=== PATIENT | male | born 1995 ===

== ENCOUNTER 2020-06-11 06:26 | Emergency (ER) | payer SELFPAY ==
[2020-06-11] MEDS ORDERED: ONDANSETRON 4 MG/2 ML INJ IV ONE (06:38)
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
[2020-06-11] MEDS ORDERED: D5W/0.45% NACL 1,000 ML IV SCH (07:00)
[2020-06-11 07:04] LABS: Hematocrit 45.7 % (35.5-45.6); Hemoglobin 15.8 gm/dl (11.8-15.2)
[2020-06-11 07:22] LABS: Blood Urea Nitrogen 6 mg/dL (9-20); Calcium 9.4 mg/dL (8.4-10.2); Hemolysis Index 31
[2020-06-11 07:27] LABS: BUN/Creatinine Ratio 9
[2020-06-11 07:58] LABS: Bilirubin,Urine NEG (Negative); Blood,Urine NEG (Negative); Color,Urine Straw (Yellow); Protein,Urine <15 mg/dL mg/dL (Negative); RBC,Urine < 1.0 /HPF (0.0-6.0); Urobilinogen,Urine < 2.0 mg/dL (<2.0)
[2020-06-11 08:20] LABS: Amphetamine Screen,Urine Negative; Benzodiazepines Screen,Urine Negative; Cannabinoid Screen,Urine Negative; Cocaine Screen,Urine Negative; Methadone Screen,Urine Negative; Opiate Screen,Urine Negative
[2020-06-11 08:27] VITALS: BP 140/90
== END 2020-06-11 08:31 | disposition home or self-care (01) ==
LOC: ED 06:26
DX: F10.920 Alcohol use, unspecified with intoxication, uncomplicated (principal); Z79.899 Other long term (current) drug therapy
CPT/HCPCS: 36415; 80048; 80307; 81001; 82550; 82962; 83735; 85014; 85018; 85049; 93005; 96361; 96374; 99285; J2405; 80320; G0480